=== PATIENT | male | born 1940 | race Caucasian/White ===

== ENCOUNTER 2019-12-22 05:51 | Inpatient (IN) | payer OTHER ==
[2019-12-16 09:33] VITALS: BMI 34.2
[2019-12-22] MEDS ORDERED: CELECOXIB 200 MG CAPSULE PO ONE (06:53)
[2019-12-22] MEDS ORDERED: oxyCODONE HCL 10 MG SUSTAINED ACTING TABLET PO ONE (06:53)
[2019-12-22] MEDS ORDERED: PANTOPRAZOLE 40 MG TABLET PO ONE (06:54)
[2019-12-22] MEDS ORDERED: ceFAZolin SODIUM 1 GM VIAL ONE (07:14)
[2019-12-22] MEDS ORDERED: VANCOMYCIN 1,000 MG VIAL (RESTRICTED TO ID ONLY) ONE (07:14)
[2019-12-22] MEDS ORDERED: SODIUM CHLORIDE 0.9% P/F 10 ML VIAL IJ ONE (07:22)
[2019-12-22] MEDS ORDERED: BUPIVACAINE LIPOSOME/PF (EXPAREL) 266 MG/20 ML VIAL ONE (07:22)
[2019-12-22] MEDS ORDERED: MIDAZOLAM HCL 2 MG/2 ML SINGLE DOSE VIAL ONE (07:22)
[2019-12-22 07:45] LABS: INR 1.17 (0.82-1.09); PROTHROMBIN TIME (PATIENT) 13.1 SEC (10.2-13.0)
--- NOTE | 2019-12-22 07:59 | HP ---
Admitting History and Physical - Admission Chief Complaint: left knee osteoarthritis x years History of Present Illness: 79 year old male presents today in regard to their left knee. Longstanding history of left knee osteoarthritis. Patient complains of pain, limited ROM, difficulty ambulating and difficulty completing activities of daily living. Patient has failed conservative treatment options including PO medications, injections, exercise programs and activity modification. Diagnostic testing reveals severe osteoarthritis of the left knee joint. At this point, patient would like to proceed with surgical intervention; a left total knee arthroplasty, MAKOplasty. 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 Westfall, refer to Geno Oconnell at [facility] for DB enteroscopy +/-bx Gastroscopy 10/05/17 mild eso erythema moderate HH, path: reflux H.pylori positive Dr. Westfall, Colonoscopy 10/05/17 tics, cecal polyp 1mm, sigmoid polyps x2 1mm each, path: TAx1 SSA x1, HP x1 5yrfu Dr. Westfall, arthroscopy left knee carpal tunnel bilat Right Shoulder Arthroscopy 05/07/2016 - Smoking History Smoking history: Former smoker Have you smoked in the past 12 months: Yes If you are a former smoker, when did you quit?: 1989 Home Medications - Allergies Allergies/Adverse Reactions: Allergies Allergy/AdvReac Type Severity Reaction Status Date / Time No Known Drug Allergies Allergy Verified 12/16/19 09:14 - Home Medications Home Medications: Ambulatory Orders Glipizide 10 mg PO DAILY 12/16/19 Lisinopril/Hydrochlorothiazide [Lisinopril-Hctz 20-12.5 mg Tab] 1 each PO DAILY 12/16/19 Metformin HCl [Glucophage] 1,000 mg PO BID 12/16/19 Omeprazole 40 mg PO DAILY 12/16/19 Simvastatin 40 mg PO DAILY 12/16/19 Warfarin Na [Coumadin] 5 mg PO DAILY 12/16/19 Review of Systems - Review of Systems Musculoskeletal: reports: Crepitus (left knee), Decreased ROM (left knee), Joint Pain (left knee), Joint Swelling (left knee) Physical Examination Vital Signs: Vital Signs Temperature 98.4 F 12/22/19 06:50 Pulse Rate 94 H 12/22/19 06:50 Respiratory Rate 18 12/22/19 06:50 Blood Pressure 112/71 12/22/19 06:50 O2 Sat by Pulse Oximetry (%) 96 12/22/19 06:50 Constitutional: Yes: Well Nourished, No Distress Eyes: Yes: Conjunctiva Clear HENT: Yes: Atraumatic Neck: Yes: Supple Cardiovascular: Yes: Regular Rate and Rhythm Respiratory: Yes: Regular Gastrointestinal: Yes: Soft ...Rectal Exam: Yes: Deferred Musculoskeletal: Yes: Joint Stiffness (left knee), Joint Swelling (left knee), Other (Limited ROM left knee) Assessment/Plan 79 year old male presents today in regard to their left knee. Longstanding history of left knee osteoarthritis. Patient complains of pain, limited ROM, difficulty ambulating and difficulty completing activities of daily living. Patient has failed conservative treatment options including PO medications, injections, exercise programs and activity modification. Diagnostic testing reveals severe osteoarthritis of the left knee joint. At this point, patient would like to proceed with surgical intervention; a left total knee arthroplasty, MAKOplasty. Pros, cons, risks, benefits & alternatives of a left total knee arthroplasty, MAKOplasty was discussed with the patient at length. Patient confirms their understanding and consents to proceed with a left total knee arthroplasty - MAKOplasty.
[2019-12-22] MEDS ORDERED: CEFAZOLIN 2 GM in DEXTROSE 5%-WATER - 50 ML IVPB ONE (08:00)
[2019-12-22] MEDS ORDERED: TRANEXAMIC ACID 1000 MG/10 ML VIAL IVPUSH ONE (08:00)
[2019-12-22] MEDS ORDERED: PROPOFOL 20 ML ONE (08:22)
[2019-12-22] MEDS ORDERED: SUCCINYLCHOLINE CHLORIDE 200 MG/10 ML SYRINGE ONE (08:22)
[2019-12-22] MEDS ORDERED: BUPIVACAINE HCL/PF 0.5% (5MG/ML) 10 ML VIAL ONE (08:24)
[2019-12-22] MEDS ORDERED: PHENYLEPHRINE HCL 10 MG/1 ML SINGLE DOSE VIAL ONE (08:42)
[2019-12-22] MEDS ORDERED: ePHEDrine SULFATE 50 MG/1 ML AMPULE ONE (08:48)
[2019-12-22] MEDS ORDERED: TRANEXAMIC ACID 1000 MG/10 ML VIAL IVPB ONE ×2 (09:23→10:00)
[2019-12-22] MEDS ORDERED: ceFAZolin SODIUM 1 GM VIAL IVPB ONE ×2 (09:47→11:20)
[2019-12-22] MEDS ORDERED: VANCOMYCIN 1,000 MG VIAL (RESTRICTED TO ID ONLY) IVPB ONE ×2 (09:48→10:30)
[2019-12-22] MEDS ORDERED: KETOROLAC TROMETHAMINE 30 MG/1 ML VIAL ONE (11:39)
[2019-12-22] MEDS ORDERED: ACETAMINOPHEN INJECTION 100 ML IVPB ONE (11:40)
--- NOTE | 2019-12-22 11:41 | OP ---
Operative Note - Note: Operative Date: 12/22/19 Pre-Operative Diagnosis: left knee OA Operation: left CARLY TKA Post-Operative Diagnosis: Same as Pre-op Surgeon: Tc Cr [employer] Sales Representative: Alannah Sandhu Anesthesia: Spinal Estimated Blood Loss (mls): 200
[2019-12-22] MEDS ORDERED: oxyCODONE HCL 5 MG TABLET PO PRN (11:42)
[2019-12-22] MEDS ORDERED: traMADol HCL 50 MG TABLET PO PRN (11:42)
[2019-12-22] MEDS ORDERED: ACETAMINOPHEN 1000 MG/100 ML VIAL (NON FORMULARY) IVPB ONE (11:45)
[2019-12-22] MEDS ORDERED: KETOROLAC TROMETHAMINE 15 MG/ML VIAL IVPUSH ONE (11:46)
[2019-12-22] MEDS ORDERED: MAG HYDROX/AL HYDROX/SIMETH 30 ML UNIT-DOSE CUP PO PRN (11:46)
[2019-12-22] MEDS ORDERED: MAGNESIUM HYDROX 2400MG/30ML ORAL SUSPENSION 30 ML CUP PO PRN (11:46)
[2019-12-22] MEDS ORDERED: ONDANSETRON 4 MG/2 ML VIAL IVPUSH PRN (11:46)
[2019-12-22] MEDS ORDERED: LACTATED RINGERS SOLUTION 1,000 ML IV SCH (12:00)
--- NOTE | 2019-12-22 12:04 | SURG ---
Surgery Director Investor Relations Note Director Investor Relations: Alannah Sandhu PA-C Date of Service: 12/22/19 Diagnosis: Left knee OA Procedure: Yohannes assisted Left tka I was present for the entirety of the operative procedure. For further detail, please refer to operative report. Visit type - Case Type Case Type: Scheduled - Emergency Emergency Visit: No - New patient This patient is new to me today: Yes Date on this admission: 12/22/19
[2019-12-22] MEDS: traMADol HCL 50 MG TABLET PO SCH ×2 (12:20→17:18)
[2019-12-22] MEDS: oxyCODONE HCL 5 MG TABLET PO PRN ×2 (13:33→16:33)
[2019-12-22] MEDS: metFORMIN HCL 500 MG TABLET (FP) PO SCH (16:31)
[2019-12-22] MEDS: INSULIN (NOVOLOG) ASPART 100 UNITS/ML 10ML VIAL SQ SCH ×2 (16:35→21:49)
[2019-12-22] MEDS: ACETAMINOPHEN 325 MG TABLET (FP) PO SCH (17:19)
[2019-12-22] MEDS: CEFAZOLIN 2 GM/D5W 2 GM/50 ML ML IVPB SCH (17:19)
[2019-12-22] MEDS ORDERED: WARFARIN NA 5 MG TABLET PO SCH (18:00)
[2019-12-22] MEDS ORDERED: DEXAMETHASONE SOD PHOSPHATE 10 MG/1 ML VIAL IVPB ONE (20:00)
[2019-12-22] MEDS: SENNOSIDES/DOCUSATE COMBO (SENNA PLUS) TABLET (UD) PO SCH (21:42)
[2019-12-22] MEDS: oxyCODONE HCL 10 MG SUSTAINED ACTING TABLET PO SCH (21:43)
[2019-12-22] MEDS: ATORVASTATIN CA 20 MG TABLET (FP) PO SCH (21:43)
[2019-12-22] MEDS: ASCORBIC ACID 500 MG TABLET (FP) PO SCH (21:43)
[2019-12-22] MEDS ORDERED: PATIENT'S OWN MEDICATION (NON-FORMULARY) (Metformin Hcl [Glucophage] 1,000 MG) PO SCH (22:00)
[2019-12-23] MEDS: traMADol HCL 50 MG TABLET PO SCH ×4 (00:01→18:36)
[2019-12-23] MEDS: ACETAMINOPHEN 325 MG TABLET (FP) PO SCH ×4 (00:01→18:36)
[2019-12-23] MEDS: CEFAZOLIN 2 GM/D5W 2 GM/50 ML ML IVPB SCH (01:27)
[2019-12-23] MEDS: metFORMIN HCL 500 MG TABLET (FP) PO SCH ×2 (06:10→18:36)
[2019-12-23] MEDS: glipiZIDE 5 MG TABLET (FP) PO SCH (06:10)
[2019-12-23] MEDS: INSULIN (NOVOLOG) ASPART 100 UNITS/ML 10ML VIAL SQ SCH ×4 (06:11→21:13)
[2019-12-23 07:42] LABS: HEMATOCRIT 30.9 % (35.4-49); HEMOGLOBIN 10.3 GM/dl (11.7-16.9); MCHC 33.5 g/dl (32.0-35.9); MEAN CELL VOLUME 89.7 fl (80-96); MEAN PLT VOLUME 7.6 fl (7.5-11.1); PLATELET COUNT 178 K/MM3 (134-434); RBC 3.44 M/mm3 (4.00-5.60); RDW 13.8 % (11.9-15.9); WHITE BLOOD COUNT 5.5 K/mm3 (4.0-10.8)
[2019-12-23 07:43] LABS: CALCIUM 8.4 mg/dl (8.5-10); CREATININE 1.5 mg/dl (0.55-1.3); POTASSIUM 4.6 mmol/L (3.5-5.1)
[2019-12-23 07:58] LABS: INR 1.38 (0.82-1.09); PROTHROMBIN TIME (PATIENT) 15.3 SEC (10.2-13.0)
[2019-12-23] MEDS: LISINOPRIL 20 MG TABLET (FP) PO SCH (09:08)
[2019-12-23] MEDS: MULTIVITAMINS (DAILY MVI) TABLET (FP) PO SCH (09:08)
[2019-12-23] MEDS: ASCORBIC ACID 500 MG TABLET (FP) PO SCH ×2 (09:08→21:06)
[2019-12-23] MEDS: SENNOSIDES/DOCUSATE COMBO (SENNA PLUS) TABLET (UD) PO SCH ×2 (09:08→21:06)
[2019-12-23] MEDS: HYDROCHLOROTHIAZIDE 12.5 MG CAPSULE (FP) PO SCH (09:08)
[2019-12-23] MEDS: PANTOPRAZOLE 40 MG TABLET PO SCH (09:08)
[2019-12-23] MEDS: oxyCODONE HCL 10 MG SUSTAINED ACTING TABLET PO SCH ×2 (09:09→21:06)
[2019-12-23] MEDS ORDERED: PATIENT'S OWN MEDICATION (NON-FORMULARY) (Simvastatin [Simvastatin] 40 MG) PO SCH (10:00)
[2019-12-23] MEDS ORDERED: PATIENT'S OWN MEDICATION (NON-FORMULARY) (Lisinopril/Hydrochlorothiazide [Lisinopril-Hctz PO SCH (10:00)
--- NOTE | 2019-12-23 14:20 | SPEC ---
DATE OF OPERATION: 12/22/2019 PREOPERATIVE DIAGNOSIS: Left knee osteoarthritis. POSTOPERATIVE DIAGNOSIS: Left knee osteoarthritis. PROCEDURE: Left total knee replacement with CARLY plasty robotic navigation. ATTENDING: Beatriz Leon MD MOLD MOVER: Alannah Sandhu PA-C ANESTHESIA: Spinal plus sedation. ESTIMATED BLOOD LOSS: 200 mL. COMPLICATIONS: None. DISPOSITION: The patient was transferred to the PACU in stable condition. IMPLANTS USED: Keeley Triathlon size 6 femoral component, Keeley Triathlon size 5 tibial component, 11-mm posterior stabilized polyethylene component, 32-mm patellar component. INDICATIONS: This is an 79-year-old male who presented to the office complaining of severe left knee pain. He was seen and examined by Dr. Leon and diagnosed with severe left knee osteoarthritis. The patient was initially treated conservatively with injections, medications, and physical therapy, but continued to have severe pain and ambulatory dysfunction. He was therefore indicated for a left total knee replacement. The risks, benefits, and alternatives to the procedure were explained to the patient in great detail, and he elected to proceed with the surgery. DESCRIPTION OF PROCEDURE: On the day of surgery, the patient was taken to the operating room and placed on the OR table. Spinal anesthesia was administered by the anesthesiologist. The patient was then positioned supine on the table and all bony prominences were padded. The knee was then prepped and draped in the usual sterile fashion and intravenous antibiotics were given for infection prophylaxis. A surgical time-out was then performed with the team, and the patients identity, procedure, side, availability of implants, and the administration of antibiotics was confirmed. With the knee flexed, a midline incision was made and carried down through the subcutaneous fat to the underlying retinaculum. A medial parapatellar arthrotomy was performed. This was followed by a subperiosteal dissection of the tissue off the proximal, medial tibia. A portion of fat pad was removed from under the patellar tendon, and a small portion of fat was excised off the distal supracondylar femur. Electrocautery and an [employer] bipolar sealing device were used to achieve hemostasis. The knee was then flexed further and the anterior horn of the lateral meniscus was released from the midline. Next, the anterior and posterior cruciate ligaments were transected. Grade 4 changes were noted diffusely throughout the knee. Femoral and tibial checkpoints were then placed in the appropriate location using a mallet. Two parallel bicortical self-drilling pins were placed in the tibial diaphysis after making stab incisions and bluntly dissecting down to bone. Two pins were then placed in the distal supracondylar femur. The [employer] navigation arrays were then attached to both the femoral and tibial pins and the lower extremity was then registered to the robotic navigation device using various joint movements, as well as inputting several dozen reference points. The knee was then taken through a full range of motion with a corrective force applied. Alignment in varus/valgus as well as flexion/extension and soft tissue balance was measured in various positions. The navigation device showed a numerical and graphic representation of the soft tissue balance. The components were repositioned virtually using the software until optimal soft tissue balance was achieved on screen. Once this was accomplished, the final plan was saved and sent to the robot. Self-retaining retractors were then placed at the joint line for exposure and protection of the collateral ligaments. The robot was brought into the sterile field and registered with the navigation device. The robotic arm with attached oscillating saw blade was then used to perform femoral and tibial bone cuts as per the saved software plan. The femoral box cut was made using the appropriately sized manual cutting guide. The knee was then irrigated. Trial components were placed and the knee was taken through a full range of motion to assess soft tissue balance and alignment. The range of motion was found to be excellent and the soft tissue balance was optimal and according to plan. The knee was then put into extension and the patella everted. The synovium around the patella was circumscribed with electrocautery. A caliper was used to measure the patellar thickness and a saw was then used to resect the patella at the chondro-osseous junction. The cut surface was then sized and drilled for the appropriate patellar button, with care taken to medialize it. A trial patella was then placed and the knee was again taken through a full range of motion. The knee was found to have both good balance and good patellar tracking. All of the components were removed except the tibial base plate. The appropriate instrumentation was used to drill and punch the proximal tibia for the keel of the final component. All bony surfaces were then cleaned with pulsatile lavage and dried. Bone cement was then prepared on the back table, and final components were cemented in place in the usual fashion. Extruded cement was removed. The polyethylene trial was placed, the knee was put into extension, and axial pressure was applied for compression while the cement hardened. The patellar button was similarly cemented into place. Once the cement had hardened, the knee was taken through a full range of motion to assess stability, balance, and patellar tracking. This was found to be optimal and the trial polyethylene was exchanged for the appropriately sized real implant. The wound was then thoroughly irrigated with normal saline. A 3-minute dilute Betadine lavage was performed. The knee was again irrigated using a pulsatile lavage device. A periarticular injection was used to locally infiltrate the capsular tissues surrounding the implant and prosthesis. Then No. 1 Polysorb and 0 VLoc 180 barbed sutures were used to close the arthrotomy. Then No. 1 Polysorb and 2-0 VLoc 90 sutures were used in the subcutaneous tissues. Then 4-0 undyed Vicryl and Dermabond skin adhesive was used to close the stab incisions made for the navigation pins. The skin was closed using both 3-0 VLoc 90 suture in a running subcuticular fashion and Dermabond skin adhesive. Once this was completed a sterile Aquacel dressing and compressive Madhav-wrap was applied. The patient was then awakened and taken to the PACU in stable condition. BEATRIZ LEON M.D. [id number]
--- NOTE | 2019-12-23 14:24 | PN ---
Progress Note (short form) - Note Progress Note: Anesthesiologist post op note POD#1 S/P Left CARLY TKA under spinal anesthesia and nerve block. VSS. Doing PT. Pain 10/08. No apparent post anesthesia complications.
[2019-12-23] MEDS ORDERED: WARFARIN NA 5 MG TABLET PO SCH (18:00)
[2019-12-23] MEDS: ATORVASTATIN CA 20 MG TABLET (FP) PO SCH (21:06)
--- NOTE | 2019-12-23 21:44 | PN ---
Progress Note (short form) - Note Progress Note: Pt seen and examined. Doing well. AVSS Selected Entries 12/23/19 18:00 Temperature 98.1 F Pulse Rate 83 Respiratory 18 Rate Blood Pressure 124/58 L O2 Sat by Pulse 98 Oximetry (%) Laboratory Tests 12/23/19 12/23/19 12/23/19 05:59 06:54 06:54 WBC 5.5 Hgb 10.3 L Hct 30.9 L Plt Count 178 PT with INR INR Sodium 133 L Potassium 4.6 Chloride 104 Carbon Dioxide 17 L Anion Gap 12 BUN 30.0 H Creatinine 1.5 H Est GFR (CKD-EPI)AfAm 50.24 Est GFR (CKD-EPI)NonAf 43.35 POC Glucometer 313 Random Glucose 332 H Calcium 8.4 L 12/23/19 06:54 WBC Hgb Hct Plt Count PT with INR 15.3 H INR 1.38 H Sodium Potassium Chloride Carbon Dioxide Anion Gap BUN Creatinine Est GFR (CKD-EPI)AfAm Est GFR (CKD-EPI)NonAf POC Glucometer Random Glucose Calcium Gen: NAD LLE: c/d/i, NVID A/P POD#1 s/p L CARLY TKA PT/OOB D/C home in AM
--- NOTE | 2019-12-23 21:53 | DS ---
Physical Examination Vital Signs: Vital Signs Temperature 98.1 F 12/23/19 18:00 Pulse Rate 83 12/23/19 18:00 Respiratory Rate 18 12/23/19 18:00 Blood Pressure 124/58 L 12/23/19 18:00 O2 Sat by Pulse Oximetry (%) 98 12/23/19 18:00 Labs: CBC, BMP 12/23/19 06:54 12/23/19 06:54 Discharge Summary Problems reviewed: Yes Reason For Visit: LEFT KNEE OSTEOARTHRITIS Current Active Problems Osteoarthritis of left knee (Acute) Procedures: Principal: left CARLY TKA Hospital Course: Admitted for elective surgery. Procedure performed without complications. Pt received postoperative antibiotic prophylaxis and DVT ppx. Ambulated with physical therapy. Stable for discharge home with outpatient followup. Condition: Stable - Instructions Diet, Activity, Other Instructions: Dr. Cr - Knee Replacement Instructions Keep the Aquacel dressing on until removed by Dr. Cr in the office - it is antibacterial and waterproof and you can shower with it on. Call the office for a follow-up appointment with Dr. Cr the week of January 08. [phone] Resume taking your preoperative Warfarin dose to prevent blood clots in your legs. Contact your primary care doctor for INR monitoring and dose adjustments if needed. Resume taking Omeprazole daily to protect against heartburn and ulcers. Take Cephalexin (antibiotic) 3x/day for 10 days to help prevent skin infection. Take a multivitamin, stool softener, and extra Vitamin C supplement daily. For pain: *Mild pain (1-3/10): Take 1 Tramadol tablet every 4 hours as needed. Moderate pain (4-6/10): Take 1 Tramadol tablet and 1 Percocet tablet every 4 hours as needed. Severe pain (7-10/10): Take 1 Tramadol tablet and 2 Percocet tablets every 4 hours as needed. Activity: You can put as much weight on the operative leg as you want. Right after you get home, there will be a physical therapist coming to your house to help you walk around and bend/straighten your knee. After your follow-up appointment, you will be sent for more intensive outpatient physical therapy which will include machines and equipment that the home therapist cannot bring to your house. Always use a walker or cane for balance and to prevent falls. Expect to see swelling/bruising from the operative site all the way down to your toes. Wear the compression stocking on the operative side during the day to minimize how much swelling there is in your foot/ankle. Don't wear the stocking at night. You don't have to wear a stocking on the other side. Disposition: [facility]/HOME HEALTH CARE - Home Medications Comprehensive Discharge Medication List: Ambulatory Orders Glipizide 10 mg PO DAILY 12/16/19 Lisinopril/Hydrochlorothiazide [Lisinopril-Hctz 20-12.5 mg Tab] 1 each PO DAILY 12/16/19 Metformin HCl [Glucophage] 1,000 mg PO BID 12/16/19 Omeprazole 40 mg PO DAILY 12/16/19 Simvastatin 40 mg PO DAILY 12/16/19 Warfarin Na [Coumadin -] 5 mg PO DAILY 12/16/19 Ascorbic Acid [Vitamin C -] 500 mg PO BID tablet 12/22/19 Cephalexin Monohydrate [Keflex -] 500 mg PO TID #30 capsule 12/22/19 Multivitamins [Multivit ([facility] Formulary)] 1 tab PO DAILY tab 12/22/19 Oxycodone HCl/Acetaminophen [Percocet 5-325 mg Tablet] 1 - 2 tab PO Q4H PRN #60 tablet MDD 10 12/22/19 Sennosides/Docusate Sodium [Pericolace -] 2 tablet PO BID tablet 12/22/19 traMADol HCL [Ultram -] 50 mg PO Q4H PRN #42 tablet MDD 6 12/22/19
[2019-12-24] MEDS: traMADol HCL 50 MG TABLET PO SCH ×2 (00:01→05:35)
[2019-12-24] MEDS: ACETAMINOPHEN 325 MG TABLET (FP) PO SCH ×2 (00:01→05:35)
[2019-12-24 06:24] VITALS: BP 104/51; PULSE 86; TEMP 99.3
[2019-12-24] MEDS: glipiZIDE 5 MG TABLET (FP) PO SCH (06:40)
[2019-12-24] MEDS: metFORMIN HCL 500 MG TABLET (FP) PO SCH (06:40)
[2019-12-24] MEDS: INSULIN (NOVOLOG) ASPART 100 UNITS/ML 10ML VIAL SQ SCH (06:41)
[2019-12-24 08:23] LABS: HEMATOCRIT 28.5 % (35.4-49); HEMOGLOBIN 9.4 GM/dl (11.7-16.9); MCH 29.5 pg (25.7-33.7); MCHC 33.1 g/dl (32.0-35.9); MEAN CELL VOLUME 89.2 fl (80-96); MEAN PLT VOLUME 7.6 fl (7.5-11.1); PLATELET COUNT 175 K/MM3 (134-434); RBC 3.19 M/mm3 (4.00-5.60); RDW 13.8 % (11.9-15.9); WHITE BLOOD COUNT 6.6 K/mm3 (4.0-10.8)
[2019-12-24 08:26] LABS: CALCIUM 8.7 mg/dl (8.5-10); CREATININE 1.3 mg/dl (0.55-1.3)
[2019-12-24 08:35] LABS: INR 1.34 (0.82-1.09); PROTHROMBIN TIME (PATIENT) 14.9 SEC (10.2-13.0)
[2019-12-24] MEDS: oxyCODONE HCL 10 MG SUSTAINED ACTING TABLET PO SCH (09:20)
[2019-12-24] MEDS: HYDROCHLOROTHIAZIDE 12.5 MG CAPSULE (FP) PO SCH (09:20)
[2019-12-24] MEDS: PANTOPRAZOLE 40 MG TABLET PO SCH (09:31)
[2019-12-24] MEDS: SENNOSIDES/DOCUSATE COMBO (SENNA PLUS) TABLET (UD) PO SCH (09:31)
[2019-12-24] MEDS: ASCORBIC ACID 500 MG TABLET (FP) PO SCH (09:31)
[2019-12-24] MEDS: LISINOPRIL 20 MG TABLET (FP) PO SCH (09:31)
[2019-12-24] MEDS: MULTIVITAMINS (DAILY MVI) TABLET (FP) PO SCH (09:31)
--- NOTE | 2019-12-27 16:10 | PATH ---
Surgical Pathology Report Patient Name: BEATRIZ MORRIS Med. Rec. #: [id number] /Age/Gender: 1940 (Age: 79) / M Account: [id number] Location: [facility] MED-SURG Taken: 12/22/2019 Received: 12/22/2019 Reported: 12/27/2019 Physicians: Beatriz Cr M.D. Specimen(s) Received LEFT KNEE BONES Clinical History Left knee osteoarthritis Final Diagnosis LEFT KNEE BONE, RESECTION: DEGENERATIVE JOINT DISEASE, LEFT KNEE. Electronically Signed Regis Jorge M.D. Gross Description Received in formalin labeled "left knee bones," is an 11.0 x 10.5 x 3.5 cm aggregate of multiple portions of bone and soft tissue, consistent with knee bones. There are multiple areas of the relation present, measuring up to 4.5 cm in greatest dimension. The remaining articular surfaces are brice-brown and diffusely granular. The underlying trabecular bone is yellow and hard. Director Of Quality Control sections are submitted in one cassette, following decalcification. 12/23/2019 [facility]
== END 2019-12-24 10:13 | disposition home health service (06) | DRG 470 ==
LOC: FM/S 05:51
PROVIDERS: ADMIT Student in an Organized Health Care Education/Training Program; ATTEND Student in an Organized Health Care Education/Training Program
PROC: 8E0Y0CZ Robotic Assisted Procedure of Lower Extremity, Open Approach (ICD-10-PCS; 2019-12-22)
PROC: 0SRD0J9 Replacement of Left Knee Joint with Synthetic Substitute, Cemented, Open Approach (ICD-10-PCS; principal; 2019-12-22 09:08)
DX: M17.12 Unilateral primary osteoarthritis, left knee (principal); E11.9 Type 2 diabetes mellitus without complications; I10 Essential (primary) hypertension; G47.30 Sleep apnea, unspecified; E78.5 Hyperlipidemia, unspecified; Z79.84 Long term (current) use of oral hypoglycemic drugs; Z87.891 Personal history of nicotine dependence
CPT/HCPCS: 36415; 73560-TC-LT-FY; 80048; 82962; 85027; 85610; 88304-TC; 88311-TC; 94760; 97010-GP; 97116-GP; J0131; J1100